=== PATIENT | male | born 1955 | race Caucasian/White ===

== ENCOUNTER 2017-05-30 09:22 | Day surgery (SDC) | payer OTHER ==
[2017-05-30 08:36] VITALS: BMI 21.4
[2017-05-30] MEDS ORDERED: PROPOFOL 20 ML ONE ×2 (09:47)
[2017-05-30 10:50] VITALS: TEMP 97.8
[2017-05-30 13:16] VITALS: BP 118/72; PULSE 68
== END 2017-05-30 12:30 | disposition home or self-care (01) ==
LOC: JASU-ENDO 09:22
PROVIDERS: ATTEND Internal Medicine Gastroenterology
PROC: 0DJD8ZZ Inspection of Lower Intestinal Tract, Via Natural or Artificial Opening Endoscopic (ICD-10-PCS; principal; 2017-05-30 10:00)
DX: K92.1 Melena (principal); K64.1 Second degree hemorrhoids

== ENCOUNTER 2021-08-21 11:43 | Emergency (ER) | payer OTHER, MEDICARE ==
[2021-08-21] MEDS ORDERED: CASIRIVIMAB/IMDEVIMAB 10 ML in SODIUM CHLORIDE 100 ML IVPB ONE (11:47)
[2021-08-21 11:49] VITALS: BMI 23.7
[2021-08-21] MEDS ORDERED: DEXAMETHASONE SOD PHOSPHATE 10 MG/1 ML VIAL IVPUSH ONE (11:56)
[2021-08-21] MEDS ORDERED: SODIUM CHLORIDE 0.9% 500 ML INFUS.BAG IV ONE (11:56)
[2021-08-21] MEDS ORDERED: ACETAMINOPHEN 1000 MG/100 ML VIAL IVPB ONE (11:56)
[2021-08-21] MEDS ORDERED: DEXAMETHASONE SOD PHOSPHATE 10 MG/1 ML VIAL ONE (12:17)
[2021-08-21] MEDS ORDERED: ACETAMINOPHEN INJECTION 100 ML IVPB ONE (12:18)
[2021-08-21 12:52] VITALS: TEMP 98.3
[2021-08-21 13:31] VITALS: BP 100/58; PULSE 67
[2021-08-21 14:21] LABS: BASO % 0.5 % (0-2.0); EOS % 1.2 % (0-4.5); HEMATOCRIT 44.9 % (35.4-49); HEMOGLOBIN 15.4 GM/dL (11.7-16.9); LYMPH % 24.1 % (8-40); MCH 32.6 pg (25.7-33.7); MCHC 34.3 g/dl (32.0-35.9); MEAN PLT VOLUME 7.5 fl (7.5-11.1); MONO % 15.2 % (3.8-10.2); PLATELET COUNT 244 10^3/uL (134-434); RBC 4.72 M/mm3 (4.00-5.60); RDW 12.9 % (11.9-15.9); WHITE BLOOD COUNT 4.2 K/mm3 (4.0-10.0)
[2021-08-21 14:39] LABS: CALCIUM 9.1 mg/dL (8.5-10.1)
[2021-08-21 14:40] LABS: BLOOD UREA NITROGEN 17.6 mg/dL (7-18)
[2021-08-21 14:43] LABS: CREATININE 1.2 mg/dL (0.55-1.3)
[2021-08-21 14:44] LABS: BILIRUBIN,TOTAL 0.6 mg/dL (0.2-1); TOT PROT 7.4 g/dl (6.4-8.2)
== END 2021-08-21 13:57 | disposition home or self-care (01) ==
LOC: JCOVINFU 11:43
PROC: 3E033GC Introduction of Other Therapeutic Substance into Peripheral Vein, Percutaneous Approach (ICD-10-PCS; principal; 2021-08-21)
DX: U07.1 COVID-19 (principal)
CPT/HCPCS: 36415; 80053; 85025; 99284-25; J0131; J1100; Q0240

== ENCOUNTER 2023-09-10 12:30 | Emergency (ER) | payer OTHER, MEDICARE ==
[2023-09-10] MEDS ORDERED: ACETAMINOPHEN INJECTION 100 ML IVPB ONE (12:44)
[2023-09-10 12:49] VITALS: BP 139/82; PULSE 63; RESP 18; TEMP 98.6; BMI 20.9
[2023-09-10] MEDS: SODIUM CHLORIDE 1,000 ML IV STA (12:50)
[2023-09-10] MEDS: ACETAMINOPHEN 1000 MG/100 ML BAG IVPB ONE (13:00)
[2023-09-10 13:15] LABS: HEMATOCRIT 41.4 % (35.4-49); HEMOGLOBIN 14.6 G/dL (11.7-16.9); MCH 33.2 pg (25.7-33.7); MCHC 35.3 g/dl (32.0-35.9); MEAN PLT VOLUME 7.4 fl (7.5-11.1); PLATELET COUNT 228.4 10^3/uL (134-434)
[2023-09-10 13:20] LABS: PLATELET ESTIMATE ADEQUATE
[2023-09-10 13:25] LABS: ALBUMIN 4.1 g/dl (3.4-5.0); BILIRUBIN,TOTAL 1.2 mg/dl (0.2-1); CALCIUM 9.2 mg/dl (8.5-10.1); POTASSIUM 4.3 mmol/L (3.5-5.1); TOT PROT 6.3 g/dl (6.4-8.2)
[2023-09-10 14:10] LABS: ERYTHROCYTE SEDIMENTATION RATE 23 mm/hr (0-20)
== END 2023-09-10 15:29 | disposition home or self-care (01) ==
LOC: FER 12:30
PROC: 3E033NZ Introduction of Analgesics, Hypnotics, Sedatives into Peripheral Vein, Percutaneous Approach (ICD-10-PCS; principal; 2023-09-10)
PROC: 3E0337Z Introduction of Electrolytic and Water Balance Substance into Peripheral Vein, Percutaneous Approach (ICD-10-PCS; 2023-09-10)
DX: R10.32 Left lower quadrant pain (principal); R11.10 Vomiting, unspecified; K52.9 Noninfective gastroenteritis and colitis, unspecified; Z20.822 Contact with and (suspected) exposure to COVID-19
CPT/HCPCS: 0241U-QW; 36415; 74177-TC; 80053; 81003; 81015; 83605; 83690; 85027; 85651; 86140; 87045; 87046; 87086; 87186; 87209; 99285-25; J0131; Q9967

== ENCOUNTER 2023-10-06 04:37 | Day surgery (SDC) | payer OTHER, MEDICARE ==
[2023-10-03 14:07] VITALS: BMI 23.0
[2023-10-06 09:41] VITALS: RESP 16
[2023-10-06 09:44] VITALS: BP 115/57; PULSE 57; TEMP 97.8
== END 2023-10-06 09:40 | disposition home or self-care (01) ==
LOC: JASU-ENDO 04:37
PROVIDERS: ATTEND Internal Medicine Gastroenterology
PROC: 0DJD8ZZ Inspection of Lower Intestinal Tract, Via Natural or Artificial Opening Endoscopic (ICD-10-PCS; principal; 2023-10-06 08:30)
DX: K57.30 Diverticulosis of large intestine without perforation or abscess without bleeding (principal); K64.8 Other hemorrhoids

== ENCOUNTER 2025-04-21 06:22 | Day surgery (SDC) | payer OTHER, MEDICARE ==
[2025-04-20 13:26] VITALS: BMI 23.4
[2025-04-21] MEDS ORDERED: LIDOCAINE HCL/PF 2% SDV 5ML VIAL ONE (07:23)
[2025-04-21] MEDS ORDERED: LIDOCAINE HCL/PF 1% SDV 5ML VIAL ONE (07:23)
[2025-04-21] MEDS ORDERED: TRIAMCINOLONE ACET 40MG/1ML VIAL ONE (07:49)
[2025-04-21] MEDS ORDERED: ACETAMINOPHEN 500 MG TABLET (FP) PO PRN (09:18)
[2025-04-21 09:38] VITALS: BP 130/70; PULSE 56
[2025-04-21 09:45] VITALS: RESP 20; TEMP 97
== END 2025-04-21 09:46 | disposition home or self-care (01) ==
LOC: JASU-SURG 06:22
PROVIDERS: ATTEND Pain Medicine Pain Medicine
PROC: 3E0T33Z Introduction of Anti-inflammatory into Peripheral Nerves and Plexi, Percutaneous Approach (ICD-10-PCS; 2025-04-21)
PROC: 3E0T3BZ Introduction of Anesthetic Agent into Peripheral Nerves and Plexi, Percutaneous Approach (ICD-10-PCS; principal; 2025-04-21 09:00)
DX: M47.816 Spondylosis without myelopathy or radiculopathy, lumbar region (principal)
CPT/HCPCS: 76000-TC-FY